=== PATIENT | male | born 1955 | race Caucasian/White ===

== ENCOUNTER 2017-01-13 06:22 | Outpatient (CLI) ==
--- NOTE | 2017-01-13 09:16 | US ---
EXAM: Ultrasound venous Doppler bilateral lower extremity HISTORY: Pain lower extremity COMPARISON: None TECHNIQUE: Venous duplex ultrasound of the right and left lower extremity was performed using color , stockton-scale, and Doppler flow imaging. FINDINGS: There is normal color flow and stockton scale appearance of the right and left common femoral , greater saphenous, profunda femoral, femoral, popliteal, peroneal, posterior tibial, and anterior tibial veins without evidence of intraluminal thrombus. Compression and augmentation is normal. No reflux is identified. IMPRESSION: No right or left lower extremity deep venous thrombosis.
--- NOTE | 2017-01-13 09:18 | DI ---
EXAM: Left ankle. [facility] HISTORY: Left ankle pain COMPARISON: None FINDINGS: No acute fracture or dislocation. Well marginated ossification near the distal fibula ma y be due to old trauma or ossification center. Mild spurring distal fibula and probably distal tibi a. Small plantar calcaneal spur. Mild posterior calcaneal enthesopathy. Mild osteoarthritis midfoo t. IMPERSSION: 1. No fracture or dislocation. 2. Small plantar calcaneal spur. 3. 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
--- NOTE | 2017-01-15 12:13 | STRESSECHO ---
Date of Test: 01/13/17 Reason for Exam: DYSPNEA, LOWER EXTREMITY PAIN, CATH 2006 Ordering Physician: MERCY MERCEDES Current Medications: METFORMIN, GLUCOZIDE, JANUVIA, ZOLOFT Physical Findings: S1, S2, NO S3 Resting EKG: SINUS RHYTHM/NO ACUTE CHANGES Target Heart Rate: 135/159 STAGE MPH/GRADE HEART RATE BPM BLOOD PRESSURE mmhg RHYTHM S-T SEGMENT +/- UP DOWN SYMPTOMS,COMMENTS At Rest 60 166/90 SR X NONE 1 1.7/10% 102 150/70 SR X NONE 2 2.5/12% 156/80 3 3.4/14% 4 4.2/16% 5 5.0/18% Immediately after 131 SR X SHORT OF BREATH Durations of Exercise: 7:40 Maximum Heart Rate Reached: 135 Reason for Termination: SHORT OF BREATH 30 SECONDS POST EXERCISE: HR 113 BPM, BP 170/80 MMHG, SR, +/-, NONE 4 MINUTES POST EXERCISE: HR 80 BPM, BP 170/80 MMHG, SR, +/-, NONE INTERPRETATION: 98% OXYGEN SATURATION WITH EXERCISE ON ROOM AIR 1. NO EVIDENCE OF ISCHEMIA BY ST-T WAVE 2. NO CHEST PAIN OR CHEST DISCOMFORT 3. BLOOD PRESSURE RESPONSE: BORDERLINE HYPERTENSION WITH EXERCISE AND REST 4. NO ARRHYTHMIAS NORMAL LEFT VENTRICULAR CONTRACTILITY--RESTING AND POST EXERCISE MTDD
--- NOTE | 2017-01-15 12:31 | ECHOSTRESS ---
Date of Exam: 01/13/17 Ordering Physician: MERCY MERCEDES Reason for Echo: DYSPNEA, LOWER EXTREMITY PAIN, STRESS TEST--NO ISCHEMIA M-Mode Normal Adult Results LV Dimensions Normal Adult Results AoV Opening excursions >1.6 LVEDD-base- 3.5-5.8 Ao root dimensions 2.0-3.7 LVESD-base- 3.1-4.6 L. Atrium dimensions 1.9-3.8 Post. Wall thickness 0.8-1.1 IV septum (thickness) 0.7-1.2 Post. Wall excursion 0.72-1.3 Septal motion Systolic motion R. Ventricular cavity 1.5-2.0 LVEF 60% Paradoxical septal wall motion 2-D: NORMAL LEFT VENTRICULAR CONTRACTILITY--RESTING AND POST EXERCISE M-MODE: MV: AV: TV: PV: CHAMBER SIZE: WALL MOTION: NORMAL LEFT VENTRICULAR CONTRACTILITY--RESTING AND POST EXERCISE PERICARDIUM: INTERPRETATION: 1. NORMAL LEFT VENTRICULAR CONTRACTILITY--RESTING AND POST EXERCISE MTDD
== END 2017-01-13 06:23 | disposition home or self-care (01) ==
LOC: CAR 06:22
PROVIDERS: ATTEND Family Medicine
DX: R06.00 Dyspnea, unspecified (principal); M79.606 Pain in leg, unspecified; M25.572 Pain in left ankle and joints of left foot